=== PATIENT | female | born 1965 | race Caucasian/White ===

== ENCOUNTER 2017-05-04 07:59 | Day surgery (SDC) | payer MEDICARE ==
[2017-05-04] MEDS ORDERED: Xylocaine-Mpf 2 ML IJ ONE (08:00)
[2017-05-04] MEDS ORDERED: DEXAMETHASONE 10 MG/ML VIAL PF IJ ONE (08:00)
[2017-05-04 08:24] LABS: Hematocrit 41.2 % (35-47); Hemoglobin 13.4 gm/dl (12.0-16.0); Mean Cell Volume 95.2 fl (78-100); Mean Corpuscular Hemoglobin 30.9 pg (26-32); Mean Corpuscular Hgb Concent. 32.5 g/dl (32-36); Mean Platelet Volume 10.8 fl (6-9.5); Platelet Count 276 K/mm3 (150-450); Red Blood Count 4.33 M/mm3 (4.1-5.4); Red Cell Distribution Width 13.9 % (11.5-14.0); White Blood Count 7.6 K/mm3 (4.0-10.5)
[2017-05-04 08:48] LABS: INR 0.94 (0.8-3.0)
[2017-05-04 08:51] LABS: PTT 29.3 SECONDS (25.3-37.0)
[2017-05-04] MEDS ORDERED: Xylocaine 1% Vial 30 ML PF IJ ONE (09:43)
--- NOTE | 2017-05-04 12:44 | XRAY ---
Indication: Left L4 ROZINA. Intraoperative fluoroscopy was provided for 1 minute 3 seconds. 2 digital spot images submitted for interpretation demonstrates posterior spinal needle projecting over the expected course of the left L4 nerve root. Small amount of contrast injected for needle tip placement. Correlate with intraoperative findings/report.
--- NOTE | 2017-05-04 12:50 | XRAY ---
1 minute and 3 seconds fluoroscopy time in surgery for left side L-4 ROZINA.
--- NOTE | 2017-05-05 07:58 | OP ---
DATE OF PROCEDURE: 05/04/2017 0926 SURGEON: Michelle Cagle D.O. PREOPERATIVE DIAGNOSIS: Degenerative lumbar spine disease, lumbar spondylosis. POSTOPERATIVE DIAGNOSIS: Degenerative lumbar spine disease, lumbar spondylosis. PROCEDURES PERFORMED: L4 epidural steroid injection under fluoroscopic guidance. DESCRIPTION OF PROCEDURE: The patient was taken to the operating room and laid in the prone position on the table. Skin over the injection site was prepped and draped in sterile fashion. Under fluoroscope bony anatomy at the targeted injection site was visualized. Induction agent was given as per anesthesia while vital signs were monitored. Local anesthetic agent was introduced to anesthetize the skin in the subcutaneous tissue through injection site. Under fluoroscopic guidance a #22-gauge standard spinal needle was advanced into the target facet joint through an oblique approach. 1 cc of preservative free Decadron was injected into each of the target epidural space. While the needle was being removed normal saline was simultaneously infiltrated to avoid sterile needle tract. Skin was cleansed with alcohol and then a bandage was applied. Self-reported preoperative pain level 8 out of 10 and postoperative pain level self-reported 3 out of 10. No complications or adverse consequences were observed. The patient was returned to the holding area until stabilized before discharge to home. The patient will be followed up within ten days after the injection for re-evaluation.
== END 2017-05-04 10:30 | disposition home or self-care (01) ==
LOC: SDC-PAIN 07:59
PROVIDERS: ATTEND Internal Medicine
DX: M54.5 Low back pain (principal); M51.16 Intervertebral disc disorders with radiculopathy, lumbar region; M96.1 Postlaminectomy syndrome, not elsewhere classified
CPT/HCPCS: 36415; 62323; 72020; 77003; 85027; 85610; 85730; J2001; Q9967

== ENCOUNTER 2018-01-18 10:09 | Day surgery (SDC) | payer MEDICARE ==
[2018-01-18] MEDS ORDERED: DIPRIVAN 200 MG/20 ML IV ONE (10:10)
[2018-01-18] MEDS ORDERED: Sodium Chloride 0.9(Preservative Free) 10 ML IJ ONE (10:10)
[2018-01-18] MEDS ORDERED: Xylocaine 1% Vial 30 ML PF IJ ONE (10:10)
[2018-01-18] MEDS ORDERED: Depo-Medrol 40 MG/ML IM ONE (10:10)
[2018-01-18] MEDS ORDERED: Lactated Ringers 1,000 ML IV ONE (14:52)
--- NOTE | 2018-01-19 04:32 | XRAY ---
Indication: L4-L5 epidural steroid injection. Comparison: Left L4 epidural steroid injection from 05/04/2017. 1.8 seconds of fluoroscopy time was utilized. PA and lateral images of the lumbar spine reveal a posterior spinal needle projected over the posterior aspect of the lower lumbar spinal canal, apparently at the L4-L5 interspace level. Some contrast media has been injected. Correlate with intraoperative findings/report.
--- NOTE | 2018-01-23 15:48 | XRAY ---
18 seconds fluoroscopy time in surgery for L4- ROZINA.
== END 2018-01-18 12:45 | disposition home or self-care (01) ==
LOC: SDC-PAIN 10:09
PROVIDERS: ATTEND Psychiatry & Neurology Pain Medicine
DX: M54.16 Radiculopathy, lumbar region (principal); E11.9 Type 2 diabetes mellitus without complications
CPT/HCPCS: 62322; 72020; 77003; 82962; J1030; J2001; J2704; Q9966

== ENCOUNTER 2018-03-15 09:27 | Day surgery (SDC) | payer MEDICARE ==
[2018-03-15] MEDS ORDERED: Depo-Medrol 40 MG/ML IJ ONE (09:28)
[2018-03-15] MEDS ORDERED: Marcaine 0.5% SDV 10 ML IJ ONE (09:28)
[2018-03-15] MEDS ORDERED: DIPRIVAN 200 MG/20 ML IV ONE (09:28)
--- NOTE | 2018-03-15 12:15 | XRAY ---
13 seconds fluoroscopy time in surgery for bilateral S-I joint injections.
--- NOTE | 2018-03-15 12:15 | XRAY ---
Indication: Bilateral SI joint injection. Intraoperative fluoroscopy was provided for 13 seconds. 3 digital spot images submitted for interpretation demonstrates posterior spinal needle tip projecting over the inferior left and right SI joints. Correlate with intraoperative findings/report.
[2018-03-15] MEDS ORDERED: Lactated Ringers 1,000 ML IV ONE (14:30)
== END 2018-03-15 11:47 | disposition home or self-care (01) ==
LOC: SDC-PAIN 09:27
PROVIDERS: ATTEND Psychiatry & Neurology Pain Medicine
DX: M46.1 Sacroiliitis, not elsewhere classified (principal); M54.16 Radiculopathy, lumbar region; E11.9 Type 2 diabetes mellitus without complications
CPT/HCPCS: 72202; 77002; 82962; G0260; 27096; J1030; J2704